=== PATIENT | male | born 1975 | race Caucasian/White ===

== ENCOUNTER 2021-02-27 22:07 | Emergency (ER) | payer SELFPAY | END 2021-02-27 23:12 | LOC: FER 22:07 | DX: Z02.79 Encounter for issue of other medical certificate (principal); I10 Essential (primary) hypertension; F17.210 Nicotine dependence, cigarettes, uncomplicated; Z53.29 Procedure and treatment not carried out because of patient's decision for other reasons; Z88.7 Allergy status to serum and vaccine; V49.40XA Driver injured in collision with unspecified motor vehicles in traffic accident, initial encounter | CPT/HCPCS: 99284 ==